=== PATIENT | female | born 1980 | race Hispanic/Latino ===

== ENCOUNTER 2018-07-10 16:16 | Outpatient (CLI) | payer BC ==
[2018-07-10 17:04] LABS: Hemoglobin 13.7 g/dL (12.0-16.0); Mean Corpuscular HGB CONC 32.6 g/dL (32.0-36.0); Mean Corpuscular Hemoglobin 28.1 pg (27.0-31.0); Mean Corpuscular Volume 86.3 fL (78.0-98.0); Mean Platelet Volume 7.5 fL (7.4-10.4); Platelet Count 298 thou/uL (130-400); RBC Distribution Width 12.1 % (11.5-14.5); Red Blood Cell (RBC) Count 4.88 mill/uL (4.20-5.40)
[2018-07-10 17:11] LABS: BHCG - Serum Negative (NEGATIVE); Pregs Control Background? CLEAR/WHITE (CLR/WHITE); Pregs Control Bar Appear? YES (CONTROL BAR)
[2018-07-10 17:26] LABS: Anion Gap 10 mmol/L (10-20); BUN (Urea Nitrogen) 14 mg/dL (7.0-18.7); Calc. Creatinine Clearance 0 mL/min (70-130); Calcium 9.3 mg/dL (7.8-10.44); Carbon Dioxide 28 mmol/L (22-29); Chloride 104 mmol/L (98-107); Estimated GFR-MDRD Greater than 90; Glucose 89 mg/dL (70-105); Potassium 3.5 mmol/L (3.5-5.1); Sodium 138 mmol/L (136-145)
== END 2018-07-10 16:17 | disposition home or self-care (01) ==
LOC: LABBT 16:16
PROVIDERS: ATTEND Podiatrist Foot & Ankle Surgery
DX: Z01.818 Encounter for other preprocedural examination (principal); M19.071 Primary osteoarthritis, right ankle and foot; M89.9 Disorder of bone, unspecified
CPT/HCPCS: 80048; 84703; 85027; 93005; 93010

== ENCOUNTER 2018-07-20 08:55 | Day surgery (SDC) | payer BC ==
[2018-07-10 17:07] VITALS: BMI 39.5
[2018-07-20] MEDS ORDERED: Clindamycin/D5W 600 mg/50 ml Premix Bag ONE (10:02)
[2018-07-20 10:34] LABS: Anion Gap 9 mmol/L (10-20); BUN (Urea Nitrogen) 11 mg/dL (7.0-18.7); Calc. Creatinine Clearance 198 mL/min (70-130); Calcium 9.2 mg/dL (7.8-10.44); Carbon Dioxide 31 mmol/L (22-29); Chloride 103 mmol/L (98-107); Estimated GFR-MDRD Greater than 90; Glucose 101 mg/dL (70-105); Sodium 139 mmol/L (136-145)
[2018-07-20] MEDS ORDERED: Fentanyl 100 MCG/2 ML VIAL ONE (11:24)
[2018-07-20] MEDS ORDERED: Midazolam HCl 2 mg/2 ml Vial ONE (11:24)
[2018-07-20] MEDS ORDERED: Bupivacaine PF 0.5% 30 ML VIAL ONE (11:27)
[2018-07-20] MEDS ORDERED: Neomycin-Polymyxin 1 ML AMP ONE (11:27)
--- NOTE | 2018-07-20 13:59 | OP ---
DATE OF PROCEDURE: 07/20/2018 SURGEON: Sindhu Marr DPM. PREOPERATIVE DIAGNOSES: Exostosis, dorsal right foot; pain, right foot. POSTOPERATIVE DIAGNOSES: Exostosis, dorsal right foot; pain, right foot. PROCEDURE: Resection of exostosis right dorsal foot. ANESTHESIA: General with local foot block. HEMOSTASIS: Pneumatic ankle tourniquet at 250 mmHg. ESTIMATED BLOOD LOSS: Less than 5 mL. MATERIALS: 3-0 Vicryl, 4-0 Monocryl and 4-0 nylon. INJECTABLES: 14 mL of 0.5% Marcaine plain. DESCRIPTION OF PROCEDURE: The patient was brought into the operating room and placed on the operatin g table in supine position. Well-padded pneumatic ankle tourniquet was placed about the patient's [facility] ankle. Following administration of IV anesthesia, local foot block was given utilizing 14 mL of 0.5% Marcaine plain. The foot was then scrubbed, prepped and draped in usual aseptic manner. An Esm arch bandage was used to exsanguinate the patient's right foot and the pneumatic ankle tourniquet was then inflated to 250 mmHg which provided adequate hemostasis throughout the entire procedure. Next, attention was then directed to the dorsal aspect of the patient's right foot where a 4 cm linear quentin gitudinal incision was made over the dorsal prominence. Upon adequate exposure of the capsule, a wilmer ear capsulotomy was performed exposing the dorsal exostosis at the first metatarsal-tarsal metatarsal joint. Upon adequate exposure of the prominence, a sagittal bone saw was used to resect the majorit y of the exostosis passed from the operative field in total. Next, a round mandy was then used to res ect all remaining bony prominences and smooth the exostosis. The wound was irrigated with copious am ounts of sterile normal saline and mixture. The capsular structures were reapproximated and coapt ed utilizing 3-0 Vicryl. The skin was closed utilizing 4-0 Monocryl for subcuticular closure and 4-0 Prolene for skin closure with 4-0 nylon for skin closure. Light compressive dressing was placed abo ut the patient's right foot and the pneumatic ankle tourniquet was released with prompt hyperemic res ponse noted to all digits of the right foot. DISCHARGE SUMMARY: The patient tolerated the procedure and anesthesia and was transferred to the rec overy room with vital signs stable and vascular status intact to all digits of the right foot. Follo wing a period of postoperative monitoring, the patient is to be discharged home. Should she have any problems prior to the first postoperative appointment, she has been advised to call and will be seen within 1 week of the procedure.
[2018-07-20] MEDS ORDERED: Promethazine HCl 25 MG/ML VIAL ONE (14:13)
[2018-07-20] MEDS ORDERED: PROPOFOL 200 MG/20 ML VIAL ONE (14:45)
[2018-07-20] MEDS ORDERED: Dexamethasone 20 MG/5 ML VIAL ONE (14:45)
[2018-07-20] MEDS ORDERED: Ketorolac Tromethamine 30 MG/ML VIAL ONE (14:45)
[2018-07-20] MEDS ORDERED: Lidocaine 1% PF 5 ML VIAL ONE (14:45)
[2018-07-20] MEDS ORDERED: Ondansetron PF 4 MG/2 ML Vial ONE (14:45)
--- NOTE | 2018-07-20 15:42 | RAD ---
RIGHT FOOT 3 VIEWS: HISTORY: Postoperative radiograph. COMPARISON: 06/29/2015. FINDINGS: There is hypertrophy of the calcaneus of the plantar aponeurosis. Joint spaces are preserved. Lisfranc alignment is maintained. There is no fracture. IMPRESSION: 1. No fracture. 2. Spurring of the calcaneus of the plantar aponeurosis insertion site. POS: [facility]
== END 2018-07-20 15:15 | disposition home or self-care (01) ==
LOC: SDC 08:55
PROVIDERS: ATTEND Podiatrist Foot & Ankle Surgery
PROC: 0QBN0ZZ Excision of Right Metatarsal, Open Approach (ICD-10-PCS; principal; 2018-07-20)
DX: M89.9 Disorder of bone, unspecified (principal); M13.871 Other specified arthritis, right ankle and foot; I10 Essential (primary) hypertension; F41.9 Anxiety disorder, unspecified; E66.9 Obesity, unspecified; Z68.39 Body mass index [BMI] 39.0-39.9, adult; Z79.899 Other long term (current) drug therapy; Z88.0 Allergy status to penicillin
CPT/HCPCS: 36415; 80048; 96374; J1100; J1885; J2001; J2250; J2405; J2550; J2704; J3010; J3490; S0020

== ENCOUNTER 2018-10-30 09:07 | Outpatient (CLI) | payer BC ==
--- NOTE | 2018-10-30 11:10 | MRI ---
MRI OF RIGHT ANKLE: DATE: 10/30/2018. PROVIDED CLINICAL HISTORY: Right ankle pain. FINDINGS: The anterior extensor, medial flexor, peroneal, and Achilles tendons demonstrate a normal MR appearan ce. The medial and lateral ankle ligaments appear intact. There is a moderate tibiotalar joint effusion. There are talonavicular and posterior subtalar joint effusions suspected. There is conspicuous patchy marrow signal alteration within the talus, calcaneu s, and navicular, primarily in periarticular distributions. There is also marrow signal alteration p resent within the medial malleolus. No focal articular cartilage defect is apparent. Alignment appears anatomic. Joint spaces appear pr eserved. There is preservation of the normal fat signal intensity within the sinus tarsi. There is posterior and plantar calcaneal enthesophyte formation. Normal appearance to the plantar aponeurosis. The courses of the regional major neurovascular structures appear unremarkable. IMPRESSION: 1. Tibiotalar, posterior subtalar, and talonavicular joint effusions with periarticular marrow edema . Findings suggest an infectious or inflammatory arthritis. 2. Posterior and plantar calcaneal enthesophyte formation. POS: [facility]
== END 2018-10-30 09:08 | disposition home or self-care (01) ==
LOC: BICMRI 09:07
PROVIDERS: ATTEND Family Medicine
DX: M25.571 Pain in right ankle and joints of right foot (principal); M25.471 Effusion, right ankle